=== PATIENT | male | born 1935 | race Caucasian/White ===

== ENCOUNTER 2018-02-07 13:00 | Outpatient (RCR) | payer MEDICARE, SELFPAY ==
--- NOTE | 2018-01-20 15:06 | PTTR_ITS ---
DATE: 01/20/18 SUBJECTIVE: Roby reports he is doing much better. He been inactive per my directions. He developed a rash along the left lower back and buttock, and believes it was from either the Motrin and or muscle relaxer, so has since stopped taking it. The rash has since improved. Has not had any muscle spasms, c /o more of an ache or discomfort int he R LB at this point. Is inquiring if he can do more activity. Pain number: 1-10 Functional gains: No pain with basic ADL's or self care tasks. Functional losses: Compliant with HEP: x Yes No OBJECTIVE: KX applied to all codes N/A Manual therapy: (61803y8). B SLR, DKTC, supine twist, and figure 4 stretching to full available motion, with pain. STM thoracolumbar paraspinals, with focus on R side where more tension was appreciated, utilized deep tissue and down regulation techniques. US to R lumbar paraspinals, 100%, 1 MhZ, 2 walter.cm2, 3 minutes, per Cass et al. recommendation for deep tissue heating. Patient Education: Increase activity level, avoiding any heavy lifting, long lever lifting, or bending and rotation movements. Discontinue activity if symptoms begin to return. OK use of lawn tractor on predictable terrain. Direct treatment time: 30 minutes Total treatment time: 30 minutes Assessment: Reduced soft tissue dysfunction at R lumbar paraspinals, but still with tension. Suggest slow weaning back into activity to see how he tolerates. Will give him the weekend to continue resting paraspinals, with only slight increase in activity, as suggested above. Will initiate strengthening to return to premorbid level of function, if he returns next week with continued improvements. Plan: As above.
--- NOTE | 2018-01-24 11:56 | PTTR_ITS ---
DATE: 01/24/18 SUBJECTIVE: Roby stating that he chose to take it easy still over the weekend and he did not return to his normal activity level around his home. He complains of no discomfort throughout the (R) low back but does have some central low grade discomfort that he experiences when getting up in the morning and this is present prior to his injury. OBJECTIVE: ROM: WFL with segmental hypomobility in all planes without discomfort. Observation: Mild hypertrophy of the (R) inferior aspect of the lumbar paraspinals along the level of L5-L3. Palpation: Tension but to a mild degree compared to prior sessions, along the (R ) lumbar paraspinals. Accessory Motions: PAs are all severely hypomobile through lumbar spine with mild discomfort (B) with UPAs at L3-4. Manual therapy: ([id number]). STM throughout thoraco lumbar paraspinals with deep tissue work along the (R) lumbar paraspinals specifically. computing consultant and UPAs at a grade 4-- and all lumbar segments. Complete (R) supine twist and figure 4 stretching to the (R) LE (B) SLR stretching. * X Neuro Re-education - (63470 x1): Initiate hooklying TrA isometric lower trap and glute isometric activation. This requires a remarkable amount of cueing and manual cues in order for pt to eventually get TrA activation. However , we are not able to perform this without assist of glute co contraction and gentle posterior pelvic tilt. I allow this in order to improve pt's general pelvic femoral body awareness. He is instructed to perform this isometric 10 secs 3x per day in addition to adduction, abduction, isometric and conjunction with this and in the standing position. Please see HEP or pt chart. Direct treatment time: 45 minutes Total treatment time: 45 minutes ASSESSMENT: Continues to demonstrate gains, reduce soft tissue dysfunction through light lumbar paraspinals now progressing onto ther ex activities but he has very poor body awareness so I feel that it is most important to improve his intrinsic core stability and awareness prior to proceeding with strengthening to ensure future injury prevention and full recovery of this condition. PLAN: 2x per week for intrinsic core strengthening, progressing into general core conditioning. Soft tissue work as needed. Pending response to normal activity which I have encouraged.
--- NOTE | 2018-01-26 15:01 | PTTR_ITS ---
DATE: 01/26/18 SUBJECTIVE: Roby feels that his back can have an increase in soreness after he completes his core exercises. He denies return of spasm. He mowed his lawn for 1 /2 an hour after his last apt without difficulty. Pain location is across the central LB. OBJECTIVE: KX applied to all codes N/A Manual therapy: ([id number]). CPA and UPA's throughout lumbar segment, grade 4+, extensively Overpressure into child's pose stretch Therapeutic procedures ([id number]). * HEP review: * See flow sheet: * x Provided skilled instruction in proper exercise performance: * x Provided skilled manual cues to facilitate proper muscle recruitment and/ or movement pattern, with focus of lower traps, TrA, glutes, and deep neck flexors * x Other: Began progression of intrinsic stabilization as follows: In hooklyin. August 2. Heel slide 3. Leg drop outs 4. Segmental shoulder bridge 5. Sit to stand, no hands All for 20 reps 6. Modified Plank x 20 sec, x 3 HEP Update per today's session - see file. Direct treatment time: 45 minutes Total treatment time: 45 minutes Assessment: Demonstrating improved intrinsic awareness and utilization, but still does need continued cues for assist of intrinsic facilitation. He had no back pain following today's treatment, so I feel further instruction and cues, allowed for proper core activation and thus strained his back less. I am hopeful we will be able to continue progressing his conditioning, and he will be bale to slowly wean back into normal activity without exacerbation. Plan: Progress strengthening as tolerated, manual work as needed.
--- NOTE | 2018-02-01 12:33 | PTTR_ITS ---
DATE: 02/01/18 OBJECTIVE: Co treatment with AUGUSTIN Chapin. Please see her note for specifics. Therapeutic procedures ([id number]). * X See flow sheet: Began strengthening program per PT instruction including squats, planks, hip PREs with focus on intrinsic stabilization throughout. Please see flow sheet for specifics. * X Provided skilled instruction in proper exercise performance: Pt requires min cues to maintain proper core stabilizer engagement. Pt required mod cues for UE form with rows, LE form with Pallof squats. * X Provided skilled manual cues to facilitate proper muscle recruitment and/ or movement pattern: Pt required min tactile cues for scapula alignment. Direct treatment time: 20 minutes Total treatment time: 20 minutes
--- NOTE | 2018-02-01 14:11 | PTTR_ITS ---
DATE: 02/01/18 SUBJECTIVE: Trung had some mild achiness through central low back at the end of last week. He decided to take a break from his exercises over the weekend, which resolved his pain. He has since resumed his exercises, without remarkable back discomfort. He is mowing his lawn, doing dishes, and returned to moderate yard work without struggle or pain. OBJECTIVE: KX applied to all codes N/A Manual therapy: ([id number]). STM B thoracic and lumbar paraspinals, with focus of R thoraclumbar paraspinals where most tension was appreciated. Therapeutic procedures ([id number]). * HEP review: * x See flow sheet: * x Provided skilled instruction in proper exercise performance: * x Provided skilled manual cues to facilitate proper muscle recruitment and/ or movement pattern: * x Other: Continued with Nena Barcenas PTA per my instructions. Direct treatment time: 30 minutes Total treatment time: 30 minutes Assessment: Roby is improving, now struggling only with low grade central low back pain. He is fearful of return of spasming. He has avoided any heavy object manipulation or lever work (i.e.weed wacking) to avoid exacerbation, but wishes to return. He is anxious to attempt snow removal in the upcoming winter months. Considering his recently confirmed severe lumbar arthritis and intrinsic and core weakness, it is required that he continue with therapy for focus of core strengthening and conditioning, to insure stability of his arthritic back, and to reduce strain to global paraspinals, which continue to demonstrate muscle tension since his injury. However, paraspinal tension, is dissipating. Slow progression into usual activity is encouraged, as we progress strengthening. Plan: Progress core strengthening per patient tolerance and body awareness, STM to paraspinals to eliminate tension and dysfunction.
--- NOTE | 2018-02-07 15:11 | PTTR_ITS ---
DATE: 02/07/18 SUBJECTIVE: Carter reporting no pain since last seen. He does continues to struggle with low grade central LBP, which he relates to his arthritic condition. He is not having any spasming. He has returned to all yard work, etc. Compliant with HEP. OBJECTIVE: KX applied to all codes N/A Manual therapy: ([id number]). Assess ST of lumbar and thoracic, due to historical dysfunction. R sided lumbar tension appreciated, justifying STM through the paraspinals. Therapeutic procedures ([id number]). * x HEP review: See updates in patient file. Complete all of these exercises with him today. * See flow sheet: * x Provided skilled instruction in proper exercise performance: * x Provided skilled manual cues to facilitate proper muscle recruitment and/ or movement pattern: [] * [] Other: [] Direct treatment time: 40 minutes Total treatment time: 40 minutes Assessment: Roby is doing excellent. He is appropriate for transition onto self maintenance stabilization program, due to his good performance of his exercises today with good intrinsic stabilization and movement pattern. He has transitioned back into his usual activities without aggravation, but he is educated to be cautious with lifting and heavy object manipulation due to the recent discovery of severe degeneration in his back. He is receptive to this. Plan: Follow up in two weeks. Progress ther ex and discharge at that time if he is doing well. Patient to return to sooner if he has exacerbation.
== END 2018-02-17 23:59 | disposition home or self-care (01) ==
LOC: PT 13:00
PROVIDERS: PCP Family Medicine Adult Medicine; Referring Provider Family Medicine Adult Medicine; Visit Provider Family Medicine Adult Medicine
DX: S39.012D Strain of muscle, fascia and tendon of lower back, subsequent encounter (principal); M62.830 Muscle spasm of back; M51.36 Other intervertebral disc degeneration, lumbar region
CPT/HCPCS: 97110; 97112; 97140

== ENCOUNTER 2020-12-11 11:27 | Outpatient (CLI) | payer MEDICARE, SELFPAY ==
[2020-12-11 11:53] LABS: Anion Gap 8.6 mmol/L (3-11); BUN 16 mg/dL (7-18); CO2 26.4 mmol/L (21.0-32.0); CREATININE 0.9 mg/dL (0.70-1.30); Calcium 8.6 mg/dL (8.5-10.1); Chloride 104 mmol/L (98-107); Glucose 105 mg/dL (74-106); Potassium 4.2 mmol/L (3.5-5.1); Sodium 139 mmol/L (136-145)
== END 2020-12-11 11:28 | disposition home or self-care (01) ==
PROVIDERS: PCP Family Medicine Adult Medicine
DX: I25.2 Old myocardial infarction (principal)
CPT/HCPCS: 36415; 80048

== ENCOUNTER 2020-12-15 12:58 | Outpatient (RCR) | payer MEDICARE, SELFPAY | END 2020-12-17 23:59 | disposition home or self-care (01) | LOC: CR 12:58 | PROVIDERS: PCP Family Medicine Adult Medicine; Visit Provider Family Medicine | DX: Z51.89 Encounter for other specified aftercare (principal); I25.2 Old myocardial infarction; Z95.1 Presence of aortocoronary bypass graft; Z95.2 Presence of prosthetic heart valve ==

== ENCOUNTER 2021-01-16 13:00 | Outpatient (RCR) | payer MEDICARE, SELFPAY ==
--- NOTE | 2020-12-26 14:45 | RT.EKG_ITS ---
APPROVED REPORT Exam: Resting ECG Reason for Exam: Flipped T waves Patient Location: O HR:82 bpm ECG Measurements Heart Rate 82 AXIS MS 202 P 37 QRSd 166 QRS 99 QT 467 T -90 QTc 546 Conclusion Age not entered, assumed to be 52 years old for purpose of ECG interpretation Sinus rhythm...normal P axis, V-rate 50- 99 Borderline prolonged MS interval...MS >202, V-rate 50- 90 Left ventricular hypertrophy...multiple voltage criteria Abnormal T, probable ischemia, lateral leads...T <-0.50mV, I aVL V5 V6 Tall T, consider metabolic/ischemic abnrm...T >1.2mV Prolonged QT interval...QTc >500mS
== END 2021-01-17 23:59 | disposition home or self-care (01) ==
LOC: CR 13:00
PROVIDERS: PCP Family Medicine Adult Medicine; Visit Provider Family Medicine
DX: Z51.89 Encounter for other specified aftercare (principal); I25.2 Old myocardial infarction; Z95.1 Presence of aortocoronary bypass graft; Z95.2 Presence of prosthetic heart valve; R94.31 Abnormal electrocardiogram [ECG] [EKG]
CPT/HCPCS: 93005; 93010; S9472

== ENCOUNTER 2021-02-16 14:00 | Outpatient (RCR) | payer MEDICARE, SELFPAY | END 2021-02-17 23:59 | disposition home or self-care (01) | LOC: CR 14:00 | PROVIDERS: PCP Family Medicine Adult Medicine; Visit Provider Family Medicine | DX: Z51.89 Encounter for other specified aftercare (principal); I25.2 Old myocardial infarction; Z95.1 Presence of aortocoronary bypass graft; Z95.2 Presence of prosthetic heart valve | CPT/HCPCS: S9472 ==

== ENCOUNTER 2021-02-27 13:00 | Outpatient (RCR) | payer MEDICARE, SELFPAY | END 2021-03-19 23:59 | disposition home or self-care (01) | LOC: CR 13:00 | PROVIDERS: PCP Family Medicine Adult Medicine; Visit Provider Family Medicine | DX: Z51.89 Encounter for other specified aftercare (principal); I25.2 Old myocardial infarction; Z95.1 Presence of aortocoronary bypass graft; Z95.2 Presence of prosthetic heart valve | CPT/HCPCS: S9472 ==

== ENCOUNTER 2021-04-10 13:00 | Outpatient (RCR) | payer MEDICARE, SELFPAY | END 2021-04-19 23:59 | disposition home or self-care (01) | LOC: CR 13:00 | PROVIDERS: PCP Family Medicine Adult Medicine; Visit Provider Family Medicine | DX: Z51.89 Encounter for other specified aftercare (principal); I25.2 Old myocardial infarction; Z95.1 Presence of aortocoronary bypass graft; Z95.2 Presence of prosthetic heart valve | CPT/HCPCS: S9472 ==